=== PATIENT | female | born 1950 | race Caucasian/White ===

== ENCOUNTER 2025-09-03 14:36 | Outpatient (CLI) | payer MEDICARE, OTHER ==
[2025-09-03 15:36] LABS: CREATININE 0.88 MG/DL (0.40-0.90); TOTAL CARBON DIOXIDE 30.4 MMOL/L (24-32); eGFR 63 ML/MIN
== END 2025-09-03 23:59 | disposition home or self-care (01) ==
LOC: RAD 14:36
PROVIDERS: ATTEND Student in an Organized Health Care Education/Training Program
DX: I10 Essential (primary) hypertension (principal); E03.9 Hypothyroidism, unspecified
CPT/HCPCS: 36415; 80053; 84443